=== PATIENT | male | born 2000 ===

== ENCOUNTER → 2021-12-19 08:00 | Outpatient (CLI) | payer OTHER ==
[~2021-12-19] VITALS: Ht 165.1 cm; Wt 58.1 kg
== END | disposition home or self-care (01) ==
LOC: LAB 08:00 → ADM 08:00 → EDSTATUS 12-22 08:00 → CIR.AMB 12-22 08:00
PROVIDERS: ATTEND Urology
DX: N47.1 Phimosis (principal); Z20.828 Contact with and (suspected) exposure to other viral communicable diseases; Z01.812 Encounter for preprocedural laboratory examination

== ENCOUNTER 2021-12-19 14:02 | Outpatient (CLI) | payer OTHER | END 2021-12-19 14:04 | disposition home or self-care (01) | LOC: LAB 14:02 | DX: B34.9 Viral infection, unspecified (principal) ==